=== PATIENT | female | born 1965 | race Caucasian/White ===

== ENCOUNTER 2017-12-03 17:08 | Observation (INO) | payer BC ==
[2017-12-03] MEDS ORDERED: Sodium Chloride 0.9% 1,000 ML IV SCH ×2 (17:30→18:30)
[2017-12-03] MEDS: Acetaminophen/HYDROcodone 325-5 MG Tab PO PRN ×2 (17:50→22:05)
[2017-12-03] MEDS: Ondansetron 4 MG/2 ML SDV IV PRN (18:07)
[2017-12-03] MEDS: Sodium Chloride 0.9% 10 ML Syringe FLUSH PRN (18:10)
[2017-12-03] MEDS ORDERED: Morphine 10 MG/ML Syringe IVPUSH PRN (18:32)
--- NOTE | 2017-12-03 18:38 | PCM.HP ---
H&P History of Present Illness - General Date of Service: 12/03/17 Admit Problem/Dx: Admission Diagnosis/Problem Admission Diagnosis/Problem Pyelonephritis Source of Information: Patient, Old Records - History of Present Illness Initial Comments - Free Text/Narative: Kaila is a 52-year-old female who came in because of abdominal pain. She started getting sick 5 days ago with neck pain and stiffness, dizziness and fatigue. This was fairly insidious in onset. Then the last 2 days she complained of pain in the left lower back that radiating to the left flank .Of note,she denies dysuria frequency or incontinence of urine outside of normal. She has no hematuria,no fever. She was noted to have mild tachycardia in the clinic in the urine which done that showed packed red and white blood cells. She has had decreased appetite during this time. She's been admitted directly from the clinic for possible acute pyelonephritis. Headache is mild and she does not have any chest pain fever shortness of breath or cough. She does have a history of back pain but this seems different. - Related Data Allergies/Adverse Reactions: Allergies Allergy/AdvReac Type Severity Reaction Status Date / Time No Known Allergies Allergy Verified 12/03/17 17:43 H&P Review of Systems - Review of Systems: Review Of Systems: ROS reveals no pertinent complaints other than HPI. Exam - Exam Exam: See Below - Vital Signs Weight: 80.876 kg - Exam General: Alert, Oriented, 4 HEENT: PERRLA, Hearing Intact, Mucosa Moist & [place], Nares Patent, Normal Nasal Septum, Posterior Pharynx Clear, Conjunctiva Clear, EOMI, EACs Clear, TMs Clear Neck: Supple, Trachea Midline, 2 Lungs: Clear to Auscultation, Normal Respiratory Effort Cardiovascular: Tachycardia GI/Abdominal Exam: Non-Tender (Female) Exam: Deferred Rectal (Female) Exam: Deferred Back Exam: Muscle Spasm, Vertebral Tenderness. No: CVA Tenderness (L) Extremities: Normal Inspection, Normal Range of Motion, Non-Tender, No Pedal Edema, Normal Capillary Refill Skin: Warm, Dry, Intact Neurological: Cranial Nerves Intact, Reflexes Equal Bilateral Neuro Extensive - Mental Status: Alert, Oriented x3, Normal Mood/Affect, Normal Cognition Neuro Extensive - Motor, Sensory, Reflexes: CN II-XII Intact, Normal Gait, Normal Reflexes Psychiatric: Alert, Normal Affect, Normal Mood - Problem List (1) Bacteriuria SNOMED Code(s): 42759024 ICD Code: R82.71 - BACTERIURIA Status: Acute Current Visit: Yes (2) Lower back pain SNOMED Code(s): 780758453 ICD Code: M54.5 - LOW BACK PAIN Status: Acute Current Visit: Yes Qualifiers: Chronicity: chronic Back pain laterality: unspecified (3) Neck pain SNOMED Code(s): 46168528 ICD Code: M54.2 - CERVICALGIA Status: Acute Current Visit: Yes (4) Dizziness SNOMED Code(s): 342358415, 873174534 ICD Code: R42 - DIZZINESS AND GIDDINESS Status: Acute Current Visit: Yes (5) Hypokalemia SNOMED Code(s): 84474793 ICD Code: E87.6 - HYPOKALEMIA Status: Acute Current Visit: Yes Problem List Initiated/Reviewed/Updated: Yes Orders Last 24hrs: Active Orders 24 hr Category Date Time Status Patient Status [ADT] Routine ADT 12/03/17 17:21 Active Height and Weight [RC] DAILY Care 12/03/17 17:21 Active Intake and Output [RC] QSHIFT Care 12/03/17 17:22 Active May Shower [RC] ASDIRECTED Care 12/03/17 17:21 Active Oxygen Therapy [RC] PRN Care 12/03/17 17:21 Active Up ad Sharmin [RC] ASDIRECTED Care 12/03/17 17:21 Active VTE/DVT Education [RC] Per Unit Routine Care 12/03/17 17:21 Active Vital Signs [RC] Q4H Care 12/03/17 17:21 Active Full Liquid Diet [DIET] Diet 12/03/17 Dinner Active Abdomen Pelvis wo Cont [CT] Routine Exams 12/03/17 18:30 Ordered BASIC METABOLIC PANEL,BMP [CHEM] AM Lab 12/04/17 05:11 Ordered CBC WITH AUTO DIFF [HEME] AM Lab 12/04/17 05:11 Ordered CULTURE BLOOD [BC] Urgent Lab 12/03/17 17:23 Ordered CULTURE BLOOD [BC] Urgent Lab 12/03/17 17:23 Ordered Acetaminophen/HYDROcodone [[place] 325-5 MG] Med 12/03/17 17:21 Active 1 tab PO Q4H PRN Enoxaparin [Lovenox] Med 12/03/17 18:00 Active 30 mg SUBCUT Q24H Ketorolac [Toradol] Med 12/03/17 18:45 Ordered 30 mg IVPUSH Q6H Levofloxacin/Dextrose 5%-Water [Levaquin in D5W 750 MG/ Med 12/03/17 18:45 Ordered 150 ML] 750 mg Premix Bag 1 bag IV Q24H Morphine Med 12/03/17 18:32 Ordered 4 mg IVPUSH Q4H PRN Ondansetron [Zofran] Med 12/03/17 17:21 Active 4 mg IV Q4H PRN Sodium Chloride 0.9% [Normal Saline] 1,000 ml Med 12/03/17 18:30 Ordered IV BOLUS Sodium Chloride 0.9% [Saline Flush] Med 12/03/17 17:21 Active 10 ml FLUSH ASDIRECTED PRN Sodium Chloride 0.9% with KCl 20 mEq @ 125 mL/Hr (1000 Med 12/03/17 18:45 Ordered mL) NS + KCl 20mEq/L [Normal Saline with 20 mEq KCl] 1,000 ml IV ASDIRECTED Blood Culture x2 Reflex Set [OM.PC] Urgent Oth 12/03/17 17:21 Ordered Peripheral IV Insertion Adult [OM.PC] Routine Oth 12/03/17 17:21 Ordered Sequential Compression Device [OM.PC] Per Unit Routine Oth 12/03/17 17:22 Ordered Resuscitation Status Routine Resus Stat 12/03/17 17:21 Ordered Medication Orders Hydrocodone Bitart/Acetaminophen ([place] 325-5 Mg) 1 tab PO Q4H PRN PRN Reason: Pain (moderate 4-6) Last Admin: 12/03/17 17:50 Dose: 1 tab Enoxaparin Sodium (Lovenox) 30 mg SUBCUT Q24H [facility] Sodium Chloride (Normal Saline) 1,000 mls @ 999 mls/hr IV BOLUS [facility] Potassium Chloride/Sodium Chloride (Normal Saline With 20 Meq Kcl) 1,000 mls @ 125 mls/hr IV ASDIRECTED [facility] Levofloxacin/Dextrose 750 mg/ (Premix) 150 mls @ 100 mls/hr IV Q24H [facility] Ketorolac Tromethamine (Toradol) 30 mg IVPUSH Q6H [facility] Stop: 12/08/17 18:31 Morphine Sulfate (Morphine) 4 mg IVPUSH Q4H PRN PRN Reason: Breakthrough Pain Ondansetron HCl (Zofran) 4 mg IV Q4H PRN PRN Reason: Nausea/Vomiting Last Admin: 12/03/17 18:07 Dose: 4 mg Sodium Chloride (Saline Flush) 10 ml FLUSH ASDIRECTED PRN PRN Reason: Keep Vein Open Last Admin: 12/03/17 18:10 Dose: 10 ml Assessment/Plan Comment:: I am not entirely convinced that she has pyelonephritis;however we will start Levaquin 750 mg IV, bolus her with crystalloid of normal saline ,then to replace her potassium ,which is low. Blood cultures have been sent, and West Nile and Lyme disease ab, also sent from the clinic. I have ordered for CT of the abdomen pelvis investigated for any hydronephrosis or kidney stones. I'll treat her pain with ketorolac and morphine as needed with the anticipation of discharge tomorrow.
[2017-12-03] MEDS: Enoxaparin 30 MG/0.3 ML Syringe SUBCUT SCH (18:39)
[2017-12-03] MEDS: Ketorolac 30 MG/ML SDV IVPUSH SCH (19:02)
[2017-12-03] MEDS: Levofloxacin/Dextrose 5%-Water 750 MG in Premix Bag 1 BAG IV SCH (19:03)
[2017-12-03] MEDS: NS + KCl 20mEq/L 1,000 ML IV SCH (20:58)
[2017-12-04] MEDS: Ketorolac 30 MG/ML SDV IVPUSH SCH ×4 (00:30→18:48)
[2017-12-04] MEDS: Ondansetron 4 MG/2 ML SDV IV PRN ×2 (04:41→18:38)
[2017-12-04] MEDS: Sodium Chloride 0.9% 10 ML Syringe FLUSH PRN ×4 (04:43→20:56)
[2017-12-04] MEDS: NS + KCl 20mEq/L 1,000 ML IV SCH ×2 (05:10→05:12)
[2017-12-04] MEDS ORDERED: Albuterol 8 GM Inhaler INH PRN (08:29)
[2017-12-04] MEDS ORDERED: LORazepam 1 MG Tab PO ONE (08:30)
--- NOTE | 2017-12-04 08:34 | PCM.PN ---
- General Info Date of Service: 12/04/17 Subjective Update: patient did not sleep well, complains of back pain. She also has nausea,but denies any fever neck pain or headache. - Review of Systems HEENT: Reports: No Symptoms Pulmonary: Reports: No Symptoms Cardiovascular: Reports: No Symptoms - Patient Data Vitals - Most Recent: Last Vital Signs Temp 98.3 F 12/04/17 07:30 Pulse 84 12/04/17 07:30 Resp 20 12/04/17 07:30 BP 102/67 12/04/17 07:30 Pulse Ox 98 12/04/17 07:30 Weight - Most Recent: 84.397 kg I&O - Last 24 Hours: Intake & Output 12/03/17 12/04/17 12/04/17 22:59 06:59 14:59 Intake Total 1790 1010 Output Total 75 100 Balance 1715 910 Lab Results Last 24 Hours: Laboratory Results - last 24 hr 12/04/17 12/04/17 Range/Units 06:15 06:15 WBC 9.8 (4.5-12.0) X10-3/uL RBC 4.00 (3.23-5.20) x10(6)uL Hgb 11.5 (11.5-15.5) g/dL Hct 33.8 (30.0-51.3) % MCV 84.5 (80-96) fL MCH 28.8 (27.7-33.6) pg MCHC 34.1 (32.2-35.4) g/dL RDW 12.8 (11.5-15.5) % Plt Count 157 (125-369) X10(3)uL MPV 8.1 (7.4-10.4) fL Neut % (Auto) 80.5 (46-82) % Lymph % (Auto) 8.9 L (13-37) % George % (Auto) 9.6 (4-12) % Eos % (Auto) 1 (1.0-5.0) % Baso % (Auto) 0 (0-2) % Neut # (Auto) 7.9 (1.6-8.3) # Lymph # (Auto) 0.9 (0.6-5.0) # George # (Auto) 0.9 (0.0-1.3) # Eos # (Auto) 0.1 (0.0-0.8) # Baso # (Auto) 0.0 (0.0-0.2) # Sodium 138 (135-145) mmol/L Potassium 3.4 L (3.5-5.3) mmol/L Chloride 102 (100-110) mmol/L Carbon Dioxide 28 (21-32) mmol/L BUN 11 (7-18) mg/dL Creatinine 0.9 (0.55-1.02) mg/dL Est Cr Clr Drug Dosing 61.71 mL/min Estimated GFR (MDRD) > 60 (>60) BUN/Creatinine Ratio 12.2 (9-20) Glucose 130 H (80-116) mg/dL Calcium 8.3 L (8.6-10.2) mg/dL Med Orders - Current: Current Medications Albuterol (Ventolin Hfa) gm INH Q4H PRN PRN Reason: Shortness of Breath Enoxaparin Sodium (Lovenox) 30 mg SUBCUT Q24H [facility] Last Admin: 12/03/17 18:39 Dose: 30 mg Fluoxetine HCl (Prozac) 20 mg PO DAILY [facility] Sodium Chloride (Normal Saline) 1,000 mls @ 999 mls/hr IV BOLUS [facility] Last Admin: 12/03/17 18:10 Dose: 999 mls/hr Potassium Chloride/Sodium Chloride (Normal Saline With 20 Meq Kcl) 1,000 mls @ 125 mls/hr IV ASDIRECTED [facility] Last Infusion: 12/04/17 05:12 Dose: Infused Levofloxacin/Dextrose 750 mg/ (Premix) 150 mls @ 100 mls/hr IV Q24H [facility] Last Admin: 12/03/17 19:03 Dose: 100 mls/hr Ketorolac Tromethamine (Toradol) 30 mg IVPUSH Q6H [facility] Stop: 12/08/17 18:01 Last Admin: 12/04/17 05:16 Dose: 30 mg Lorazepam (Ativan) 1 mg PO ONETIME ONE Stop: 12/04/17 08:31 Ondansetron HCl (Zofran) 4 mg IV Q4H PRN PRN Reason: Nausea/Vomiting Last Admin: 12/04/17 04:41 Dose: 4 mg Sodium Chloride (Saline Flush) 10 ml FLUSH ASDIRECTED PRN PRN Reason: Keep Vein Open Last Admin: 12/04/17 04:43 Dose: 10 ml Discontinued Medications Hydrocodone Bitart/Acetaminophen ([place] 325-5 Mg) 1 tab PO Q4H PRN PRN Reason: Pain (moderate 4-6) Last Admin: 12/03/17 22:05 Dose: 1 tab Sodium Chloride (Normal Saline) 1,000 mls @ 125 mls/hr IV ASDIRECTED [facility] Morphine Sulfate (Morphine) 4 mg IVPUSH Q4H PRN PRN Reason: Breakthrough Pain - Exam General: Alert HEENT: Pupils Equal Neck: Supple Lungs: Clear to Auscultation Cardiovascular: Regular Rate Back Exam: Muscle Spasm. No: Full Range of Motion, CVA Tenderness (R), CVA Tenderness (L) - Problem List & Annotations (1) Bacteriuria SNOMED Code(s): 01525693 Code(s): R82.71 - BACTERIURIA Status: Acute Current Visit: Yes (2) Lower back pain SNOMED Code(s): 219363008 Code(s): M54.5 - LOW BACK PAIN Status: Acute Current Visit: Yes Qualifiers: Chronicity: chronic Back pain laterality: unspecified (3) Neck pain SNOMED Code(s): 83053280 Code(s): M54.2 - CERVICALGIA Status: Acute Current Visit: Yes (4) Dizziness SNOMED Code(s): 144960617, 269873219 Code(s): R42 - DIZZINESS AND GIDDINESS Status: Acute Current Visit: Yes (5) Hypokalemia SNOMED Code(s): 05370402 Code(s): E87.6 - HYPOKALEMIA Status: Acute Current Visit: Yes (6) Pyelonephritis SNOMED Code(s): 09540197 Code(s): N12 - TUBULO-INTERSTITIAL NEPHRITIS, NOT SPCF ACUTE OR CHRONIC Status: Acute Current Visit: Yes - Problem List Review Problem List Initiated/Reviewed/Updated: Yes - My Orders Last 24 Hours: My Active Orders 12/03/17 18:00 Ketorolac [Toradol] 30 mg IVPUSH Q6H Levofloxacin/Dextrose 5%-Water [Levaquin in D5W 750 MG/150 ML] 750 mg Premix Bag 1 bag IV Q24H 12/03/17 18:30 Abdomen Pelvis wo Cont [CT] Routine Sodium Chloride 0.9% [Normal Saline] 1,000 ml IV BOLUS 12/03/17 18:39 EKG 12 Lead [EK] Routine 12/03/17 18:45 NS + KCl 20mEq/L [Normal Saline with 20 mEq KCl] 1,000 ml IV ASDIRECTED 12/04/17 08:29 Albuterol [Ventolin HFA] 2 puff INH Q4H PRN 12/04/17 08:30 PT Evaluation and Treatment [CONS] Routine LORazepam [Ativan] 1 mg PO ONETIME ONE 12/04/17 09:00 FLUoxetine [PROzac] 20 mg PO DAILY - Plan Plan:: CAT scan indeed does show hydronephrosis which suggestive of pyelonephritis as well. I'll continue Levaquin. Hep-Lock IV, and treat with ketorolac and Tylenol, Zofran when necessary. Also given some lorazepam to relax, and sleep some today. Physical therapy therapy will see her for back pain. We'll send her home tomorrow morning or later tonight.
[2017-12-04] MEDS: FLUoxetine 20 MG Cap PO SCH (10:02)
[2017-12-04] MEDS: Enoxaparin 30 MG/0.3 ML Syringe SUBCUT SCH (18:34)
[2017-12-04] MEDS: Levofloxacin/Dextrose 5%-Water 750 MG in Premix Bag 1 BAG IV SCH (18:41)
[2017-12-05] MEDS: Ketorolac 30 MG/ML SDV IVPUSH SCH ×2 (00:49→05:58)
[2017-12-05] MEDS: Sodium Chloride 0.9% 10 ML Syringe FLUSH PRN ×2 (00:50→06:02)
--- NOTE | 2017-12-05 08:52 | PCM.PN ---
- General Info Date of Service: 12/05/17 Subjective Update: patient did sleep well last night, reports improvement of back pain. Also denies any fever neck pain or headache. - Review of Systems General: Reports: No Symptoms HEENT: Reports: No Symptoms Pulmonary: Reports: No Symptoms - Patient Data Vitals - Most Recent: Last Vital Signs Temp 98.2 F 12/05/17 06:00 Pulse 88 12/05/17 06:00 Resp 18 12/05/17 06:00 BP 136/72 12/05/17 06:00 Pulse Ox 96 12/05/17 06:00 Weight - Most Recent: 84.51 kg I&O - Last 24 Hours: Intake & Output 12/04/17 12/05/17 12/05/17 22:59 06:59 14:59 Intake Total 650 400 Output Total 700 450 Balance -50 -50 Gm Results Last 24 Hours: Microbiology 12/03/17 19:10 Aerobic Blood Culture - Preliminary Blood - Venous - Lab Draw NO GROWTH AFTER 1 DAY Anaerobic Blood Culture - Preliminary NO GROWTH AFTER 1 DAY 12/03/17 19:03 Aerobic Blood Culture - Preliminary Blood - Venous NO GROWTH AFTER 1 DAY Anaerobic Blood Culture - Preliminary NO GROWTH AFTER 1 DAY Med Orders - Current: Current Medications Albuterol (Ventolin Hfa) 0 gm INH Q4H PRN PRN Reason: Shortness of Breath Enoxaparin Sodium (Lovenox) 30 mg SUBCUT Q24H [facility] Last Admin: 12/04/17 18:34 Dose: 30 mg Fluoxetine HCl (Prozac) 20 mg PO DAILY [facility] Last Admin: 12/04/17 10:02 Dose: 20 mg Sodium Chloride (Normal Saline) 1,000 mls @ 999 mls/hr IV BOLUS [facility] Last Admin: 12/03/17 18:10 Dose: 999 mls/hr Levofloxacin/Dextrose 750 mg/ (Premix) 150 mls @ 100 mls/hr IV Q24H [facility] Last Admin: 12/04/17 18:41 Dose: 100 mls/hr Ketorolac Tromethamine (Toradol) 30 mg IVPUSH Q6H [facility] Stop: 12/08/17 18:01 Last Admin: 12/05/17 05:58 Dose: 30 mg Ondansetron HCl (Zofran) 4 mg IV Q4H PRN PRN Reason: Nausea/Vomiting Last Admin: 12/04/17 18:38 Dose: 4 mg Sodium Chloride (Saline Flush) 10 ml FLUSH ASDIRECTED PRN PRN Reason: Keep Vein Open Last Admin: 12/05/17 06:02 Dose: 10 ml Discontinued Medications Hydrocodone Bitart/Acetaminophen ([place] 325-5 Mg) 1 tab PO Q4H PRN PRN Reason: Pain (moderate 4-6) Last Admin: 12/03/17 22:05 Dose: 1 tab Sodium Chloride (Normal Saline) 1,000 mls @ 125 mls/hr IV ASDIRECTED [facility] Potassium Chloride/Sodium Chloride (Normal Saline With 20 Meq Kcl) 1,000 mls @ 125 mls/hr IV ASDIRECTED [facility] Last Infusion: 12/04/17 05:12 Dose: Infused Lorazepam (Ativan) 1 mg PO ONETIME ONE Stop: 12/04/17 08:31 Last Admin: 12/04/17 10:01 Dose: 1 mg Morphine Sulfate (Morphine) 4 mg IVPUSH Q4H PRN PRN Reason: Breakthrough Pain - Exam General: Alert HEENT: Pupils Equal, Scleral Icterus Lungs: Clear to Auscultation Cardiovascular: Regular Rate GI/Abdominal Exam: Normal Bowel Sounds, Soft, Non-Tender, No Organomegaly. No: Distended, Guarding - Problem List & Annotations (1) Bacteriuria SNOMED Code(s): 86403751 Code(s): R82.71 - BACTERIURIA Status: Acute Current Visit: Yes (2) Lower back pain SNOMED Code(s): 021511798 Code(s): M54.5 - LOW BACK PAIN Status: Acute Current Visit: Yes Qualifiers: Chronicity: chronic Back pain laterality: unspecified (3) Neck pain SNOMED Code(s): 24717462 Code(s): M54.2 - CERVICALGIA Status: Acute Current Visit: Yes (4) Dizziness SNOMED Code(s): 074632392, 508166651 Code(s): R42 - DIZZINESS AND GIDDINESS Status: Acute Current Visit: Yes (5) Hypokalemia SNOMED Code(s): 74368965 Code(s): E87.6 - HYPOKALEMIA Status: Acute Current Visit: Yes (6) Pyelonephritis SNOMED Code(s): 89061136 Code(s): N12 - TUBULO-INTERSTITIAL NEPHRITIS, NOT SPCF ACUTE OR CHRONIC Status: Acute Current Visit: Yes - Problem List Review Problem List Initiated/Reviewed/Updated: Yes - My Orders Last 24 Hours: My Active Orders 12/04/17 08:29 Albuterol [Ventolin HFA] 0 gm INH Q4H PRN 12/04/17 08:30 PT Evaluation and Treatment [CONS] Routine 12/04/17 09:00 FLUoxetine [PROzac] 20 mg PO DAILY 12/04/17 Dinner Regular Diet [DIET] - Plan Plan:: I will discharge her today, continue and finish one-week course of Levaquin.
[2017-12-05] MEDS: FLUoxetine 20 MG Cap PO SCH (09:14)
== END 2017-12-05 10:41 | disposition home or self-care (01) ==
LOC: FB.MS 17:18
PROVIDERS: ADMIT Family Medicine; ATTEND Family Medicine
DX: N12 Tubulo-interstitial nephritis, not specified as acute or chronic (principal); N13.30 Unspecified hydronephrosis; E87.6 Hypokalemia; M54.5 Low back pain; M54.2 Cervicalgia
CPT/HCPCS: 36415; 74176; 80048; 85025; 87040; 96361; 96365; 96366; 96372; 96375; 96376; A9270; G0378; J1650; J1885; J1956; J2405; J3480; J7030; J7050

== ENCOUNTER 2021-01-04 06:45 | Day surgery (SDC) | payer BC ==
[~2021-01-04 06:45] MED LIST: Lactated Ringers 1,000 ML IV SCH; Sodium Chloride 0.9% 10 ML Syringe FLUSH PRN
[2021-01-04] MEDS ORDERED: Lidocaine 1% PF 2 ML SDV INJECT ONE (06:46)
[2021-01-04] MEDS ORDERED: Propofol 200 MG/20 ML SDV IV ONE (06:46)
--- NOTE | 2021-01-04 08:32 | PCM.HP.2 ---
H&P History of Present Illness - General Date of Service: 01/04/21 Admit Problem/Dx: Admission Diagnosis/Problem Admission Diagnosis/Problem Colonoscopy Source of Information: Patient, Old Records History Limitations: Reports: No Limitations - History of Present Illness Initial Comments - Free Text/Narative: Here for colonoscopy for positive cologuard - Related Data Allergies/Adverse Reactions: Allergies Allergy/AdvReac Type Severity Reaction Status Date / Time No Known Allergies Allergy Verified 01/04/21 07:15 Home Medications: Home Meds Albuterol [Ventolin HFA] 2 puff INH Q6H PRN 12/04/17 [History] FLUoxetine HCl [Fluoxetine HCl] 20 mg PO DAILY 12/04/17 [History] Tolterodine [Detrol LA 24 Hr] 4 mg PO DAILY 01/03/21 [History] traMADol [Ultram] 50 mg PO TID PRN 01/03/21 [History] Past Medical History HEENT History: Reports: None Cardiovascular History: Reports: None Respiratory History: Reports: Bronchitis, Recurrent Gastrointestinal History: Reports: Other (See Below) Other Gastrointestinal History: DYSPHAGIA Genitourinary History: Reports: Urinary Incontinence, UTI, Recurrent [employer] History: Reports: None Other OB/BYN History: had 3 pregnancies had an olation of uterine lining Musculoskeletal History: Reports: Back Pain, Chronic Other Musculoskeletal History: has a bad disc in her low back takes meds at home for the pain Neurological History: Reports: None Psychiatric History: Reports: None Endocrine/Metabolic History: Reports: Obesity/BMI 30+ Hematologic History: Reports: None Immunologic History: Reports: None Oncologic (Cancer) History: Reports: None Dermatologic History: Reports: None - Past Surgical History Head Surgeries/Procedures: Reports: None HEENT Surgical History: Reports: None Cardiovascular Surgical History: Reports: None Respiratory Surgical History: Reports: None GI Surgical History: Reports: Cholecystectomy Female Surgical History: Reports: D&C, Other (See Below) Other Female Surgeries/Procedures: HYSTEROSCOPY WITH ENDOMETRIAL ABLATION. D&C Endocrine Surgical History: Reports: None Neurological Surgical History: Reports: None Musculoskeletal Surgical History: Reports: None Dermatological Surgical History: Reports: None Social & Family History - Family History Family Medical History: No Pertinent Family History - Tobacco Use Tobacco Use Status *Q: Never Tobacco User - Alcohol Use Number of Drinks Per Day: 3 - Recreational Drug Use Recreational Drug Use: No H&P Review of Systems - Review of Systems: Review Of Systems: See Below General: Reports: No Symptoms Pulmonary: Reports: No Symptoms Cardiovascular: Reports: No Symptoms Gastrointestinal: Reports: No Symptoms Exam - Exam Exam: See Below - Vital Signs Vital Signs: Last Vital Signs Temp 97.0 F 01/04/21 06:45 Pulse 101 H 01/04/21 06:45 Resp 18 01/04/21 06:45 BP 133/90 01/04/21 06:45 Pulse Ox 96 01/04/21 06:45 Weight: 113.366 kg - Exam General: Alert, Oriented Lungs: Clear to Auscultation, Normal Respiratory Effort Cardiovascular: Regular Rate, Regular Rhythm GI/Abdominal Exam: Soft, Non-Tender Sepsis Event Note - Focused Exam Vital Signs: Vital Signs Temp Pulse Resp BP Pulse Ox 01/04/21 06:45 97.0 F 101 H 18 133/90 96 Problem List Initiated/Reviewed/Updated: Yes Orders Last 24hrs: Active Orders 24 hr Category Date Time Status Patient Status [ADT] Routine ADT 01/04/21 06:45 Active Patient to Empty Bladder [RC] ASDIRECTED Care 01/04/21 06:45 Active Verify Patient Consent Obtain [RC] ASDIRECTED Care 01/04/21 06:45 Active Nothing Per Oral Diet [DIET] Diet 01/04/21 Breakfast Ordered HCG QUALITATIVE,URINE [URCHEM] Routine Lab 01/04/21 06:45 Ordered Lactated Ringers [Ringers, Lactated] 1,000 ml Med 01/04/21 06:45 Active IV ASDIRECTED Sodium Chloride 0.9% [Saline Flush] Med 01/04/21 06:45 Active 10 ml FLUSH ASDIRECTED PRN Peripheral IV Insertion Adult [OM.PC] Routine Oth 01/04/21 06:45 Ordered Resuscitation Status Routine Resus Stat 01/03/21 09:06 Ordered Medication Orders Lactated Ringer's (Ringers, Lactated) 1,000 mls @ 125 mls/hr IV ASDIRECTED [facility] Last Admin: 01/04/21 06:45 Dose: 125 mls/hr Documented by: ELIJAH Sodium Chloride (Sodium Chloride 0.9% 10 Ml Syringe) 10 ml FLUSH ASDIRECTED PRN PRN Reason: Keep Vein Open Assessment/Plan Comment:: A) Positive Cologuard P) Ok toproceed with colonoscopy, risks and complications reviewed,consent obtained
--- NOTE | 2021-01-04 08:33 | PCM.OPNOTE ---
- General Post-Op/Procedure Note Date of Surgery/Procedure: 01/04/21 Operative Procedure(s): Colonoscopy Findings: Normal Pre Op Diagnosis: Pos Cologuard Post-Op Diagnosis: Same Anesthesia Technique: MAC Primary Surgeon: Aric Vaughan Complications: None Condition: Good
--- NOTE | 2021-01-04 13:23 | OR ---
DATE OF OPERATION: 01/04/2021 SURGEON: Aric Vaughan MD PREOPERATIVE DIAGNOSIS: Positive Cologuard. POSTOPERATIVE DIAGNOSIS: Normal colonoscopy. PROCEDURE: Colonoscopy. ANESTHESIA: MAC. DESCRIPTION OF PROCEDURE: The patient was brought to the procedure room where she was placed on her left side and IV sedation administered. Digital rectal exam was performed which was normal. Colonoscope was inserted and advanced to the level of the cecum without difficulty. Cecal position was confirmed by identifying the appendiceal lumen and ileocecal valve. Prep was good and surfaces were well visualized. Upon withdrawing the scope, the ascending, transverse, and descending colon were normal in appearance. The sigmoid colon and rectum were normal. Retroflexion was normal. Air was removed and the scope withdrawn. The patient tolerated the procedure well and returned to recovery in stable condition. Recommend routine colon screening again in 10 years. /[id number] ANTHONY/LARS
== END 2021-01-04 09:10 | disposition home or self-care (01) ==
LOC: FB.SDS 06:45
PROVIDERS: ATTEND Surgery
DX: R19.5 Other fecal abnormalities (principal); E66.9 Obesity, unspecified; Z68.41 Body mass index [BMI] 40.0-44.9, adult; Z79.899 Other long term (current) drug therapy
CPT/HCPCS: 00811; 45378; J2704; J7120

== ENCOUNTER 2024-05-22 04:31 | Emergency (ER) | payer BC ==
[2024-05-22] MEDS: Ketorolac 30 MG/ML SDV IM ONE (04:57)
[2024-05-22] MEDS ORDERED: LORazepam 1 MG Tab PO ONE (04:59)
[2024-05-22] MEDS ORDERED: Sodium Chloride 0.9% 10 ML Syringe FLUSH PRN (05:12)
[2024-05-22] MEDS: Sodium Chloride 0.9% 1,000 ML IV ONE ×2 (05:18→06:33)
[2024-05-22] MEDS: Ondansetron 4 MG/2 ML SDV IVPUSH ONE (05:32)
[2024-05-22] MEDS ORDERED: Ondansetron 4 MG/2 ML SDV IVPUSH ONE (05:33)
[2024-05-22] MEDS: LORazepam 2 MG/ML SDV IVPUSH ONE (05:40)
[2024-05-22] MEDS: Benzonatate 100 MG Cap PO ONE (06:21)
[2024-05-22 06:37] LABS: BASOPHILS PERCENT AUTO 0.2 % (0.2-1.5); EOSINOPHILS PERCENT AUTO 0.3 % (0.6-8.1); HEMATOCRIT 43.5 % (34.2-48.2); HEMOGLOBIN 14.4 g/dL (11.4-15.5); LYMPHOCYTES PERCENT AUTO 15.5 % (18.4-52.1); MEAN CORPUSCULAR HEMOGLOBIN 28.5 pg (23.9-33.9); MEAN CORPUSCULAR HGB CONC 33.2 g/dL (31.9-34.8); MEAN CORPUSCULAR VOLUME 85.9 fL (76.7-100.5); MEAN PLATELET VOLUME 8.8 fL (7.1-12.4); MONOCYTES ABSOLUTE AUTO 0.4 x10-3/uL (0.3-1.0); MONOCYTES PERCENT AUTO 6.2 % (4.4-15.7); NEUTROPHILS ABSOLUTE AUTO 4.8 x10-3/uL (1.5-6.3); NEUTROPHILS PERCENT AUTO 77.8 % (30.8-76.2); PLATELET COUNT,PLT 174 x10(3)uL (151-488); RED BLOOD CELL COUNT 5.06 x10(6)uL (3.60-5.20); RED CELL DISTRIBUTION WIDTH 13.9 % (12.3-16.5); WHITE BLOOD CELL COUNT,WBC 6.2 x10-3/uL (3.0-10.3)
[2024-05-22 06:38] LABS: BLOOD UREA NITROGEN,BUN 8 mg/dL (7-18); BUN/CREATININE RATIO 8.9 (9-20); CALCIUM 8.7 mg/dL (8.6-10.2); CARBON DIOXIDE,CO2 25 mmol/L (21-32); CHLORIDE,CL 106 mmol/L (100-110); CREATININE 0.9 mg/dL (0.55-1.02); ESTIMATED GFR 73 mL/min (>60); GLUCOSE RANDOM 110 mg/dL (80-116); POTASSIUM,K 3.5 mmol/L (3.5-5.3); SODIUM,NA 143 mmol/L (135-145)
[2024-05-22 06:49] LABS: A/G RATIO 1.4; ALBUMIN 3.7 g/dL (3.2-4.6); ALKALINE PHOSPHATASE 122 IU/L (56-112); BILIRUBIN TOTAL 4.7 mg/dL (0.1-1.3); PROTEIN TOTAL,TP 6.4 g/dL (6.0-8.0)
[2024-05-22 07:23] LABS: ALANINE AMINOTRANSFERASE,ALT 1465 U/L (12-36)
[2024-05-22 07:26] LABS: ASPARTATE AMNIOTRANSFERASE,AST 945 IU/L (5-25)
[2024-05-22 07:41] LABS: APPEARANCE,URINE CLEAR (CLEAR); BILIRUBIN,URINE NEGATIVE (NEGATIVE); COLOR,URINE YELLOW (YELLOW); GLUCOSE,URINE NORMAL (NORMAL); KETONES,URINE 15 mg/dL (NEGATIVE); LEUKOCYTE ESTERASE,URINE NEGATIVE (NEGATIVE); NITRITE,URINE NEGATIVE (NEGATIVE); OCCULT BLOOD,URINE NEGATIVE (NEGATIVE); PROTEIN,URINE NEGATIVE (NEGATIVE); UROBILINOGEN,URINE NORMAL (NEGATIVE)
[2024-05-22] MEDS: Morphine 2 MG/ML SYRINGE IVPUSH ONE (08:51)
== END 2024-05-22 09:35 ==
LOC: FB.ED 04:31
DX: K80.50 Calculus of bile duct without cholangitis or cholecystitis without obstruction (principal); J10.1 Influenza due to other identified influenza virus with other respiratory manifestations; R94.5 Abnormal results of liver function studies; E66.9 Obesity, unspecified; Z90.49 Acquired absence of other specified parts of digestive tract; Z79.51 Long term (current) use of inhaled steroids; Z79.899 Other long term (current) drug therapy
CPT/HCPCS: 36415; 71046; 74176; 80053; 81003; 85025; 96361; 96372; 96374; 96375; 99285-25; A9270-GY; J1885; J2060; J2270; J2405; J7030